=== PATIENT | female | born 1975 | race Caucasian/White ===

== ENCOUNTER → 2023-12-28 16:18 | Outpatient (REF) | payer OTHER, SELFPAY | LOC: HWWDC 16:18 | PROVIDERS: ATTENDING PHYSICIAN Obstetrics & Gynecology; FAMILY PHYSICIAN Nurse Practitioner | DX: Z12.31 Encounter for screening mammogram for malignant neoplasm of breast (principal) | CPT/HCPCS: 77063; 77067 ==

== ENCOUNTER → 2024-05-24 17:44 | Outpatient (REF) | payer OTHER, SELFPAY | LOC: PAVMRI 17:44 | PROVIDERS: ATTENDING PHYSICIAN Podiatrist; FAMILY PHYSICIAN Internal Medicine | DX: M72.2 Plantar fascial fibromatosis (principal) | CPT/HCPCS: 73718 ==

== ENCOUNTER → 2024-10-30 12:45 | Outpatient (REF) | payer OTHER, SELFPAY | LOC: EMG 12:45 | PROVIDERS: ATTENDING PHYSICIAN Podiatrist; FAMILY PHYSICIAN Nurse Practitioner | DX: M72.2 Plantar fascial fibromatosis (principal); R20.0 Anesthesia of skin | CPT/HCPCS: 95886; 95911 ==